=== PATIENT | female | born 1960 | race Caucasian/White ===

== ENCOUNTER 2017-06-04 05:55 | Emergency (ER) | payer SELFPAY ==
[~2017-06-04] VITALS: Ht 154.9 cm; Wt 79.0 kg
[2017-06-04] MEDS ORDERED: PENICILLIN G BENZATHINE LA 1.2 MU TBX IM ONE (06:30)
[2017-06-04] MEDS ORDERED: LIDOCAINE HCL50 ML MT (06:36)
== END 2017-06-04 06:45 | disposition home or self-care (01) ==
LOC: FSED 05:55
DX: R50.9 Fever, unspecified (principal); R05 Cough; J02.0 Streptococcal pharyngitis
CPT/HCPCS: 83518; 99282; J0561